=== PATIENT | female | born 1965 | race Caucasian/White ===

== ENCOUNTER 2021-08-14 06:58 | Day surgery (SDC) | payer BC ==
[2021-08-14] MEDS ORDERED: Lactated Ringers 1,000 ML IV SCH (07:00)
[2021-08-14] MEDS ORDERED: Propofol 200 MG/20 ML SDV ONE ×2 (08:23→09:47)
[2021-08-14] MEDS ORDERED: fentaNYL 100 MCG/2 ML SDV ONE (08:23)
--- NOTE | 2021-08-15 14:21 | OR ---
PREOPERATIVE DIAGNOSIS: First screening colonoscopy. POSTOPERATIVE DIAGNOSIS: Colon polyps. PROCEDURE PERFORMED: Total flexible colonoscopy with biopsies. ANESTHESIA: MAC anesthesia. COMPLICATIONS: None apparent. BLOOD LOSS: Minimal. FINDINGS: 1. Hepatic flexure polypoid lesion, 1 to 2 cm, biopsied with cold forceps and tattoo placed. This did appear to be a polyp that was on the backside of a fold and large enough that I did not feel that I could successfully remove this endoscopically. The biopsies were obtained and a tattoo placed in the event this comes back as an adenoma. 2. Sigmoid colon polyps x3, 7 mm and 4 mm, ORISE gel and hot snare, cold snare, cold forceps. 3. Rectosigmoid polyp, 12 mm, hot snare. Tattoo placed here given the size and in the event that comes back as with some malignancy. 4. There were multiple scattered hyperplastic polyps in the rectosigmoid colon. Start time 0918, cecum 0930, stop 0959. BOWEL PREP: [place] class 2. INDICATIONS: Isabel Scott is a 56-year-old female who is here for first screening colonoscopy. She denies any bloody or dark black stools. No family history of colon cancer. She is fairly resistant to cancer screening and has not gotten a mammogram. I did emphasize the importance of both breast cancer and colon cancer screening for her. DETAILS OF PROCEDURE: Informed consent was obtained. The patient was brought to the procedure room, placed in left lateral decubitus position. MAC anesthesia was used by Anesthesia colleagues. The colonoscope was introduced in the rectum and advanced all the way to the cecum. The appendiceal orifice and ileocecal valve were photographed. The terminal ileum was intubated. The colonoscope was then slowly withdrawn. No pathology was identified except for what is mentioned in the above findings section. A retroflexed view was obtained. The colonoscope was removed. The patient was awoken from anesthesia without issue. PATHOLOGY: RECOMMENDATIONS: RKM: 08/14/2021 10:08:18 MODL: 08/14/2021 12:45:40 /[id number]
== END 2021-08-14 11:15 | disposition home or self-care (01) ==
LOC: VM.SDS 06:58
PROVIDERS: ATTEND Student in an Organized Health Care Education/Training Program
DX: Z12.11 Encounter for screening for malignant neoplasm of colon (principal); D12.3 Benign neoplasm of transverse colon; D12.5 Benign neoplasm of sigmoid colon; D12.8 Benign neoplasm of rectum; F17.210 Nicotine dependence, cigarettes, uncomplicated; G43.909 Migraine, unspecified, not intractable, without status migrainosus; F41.9 Anxiety disorder, unspecified; Z90.49 Acquired absence of other specified parts of digestive tract; Z98.890 Other specified postprocedural states; Z79.899 Other long term (current) drug therapy; Z88.8 Allergy status to other drugs, medicaments and biological substances
CPT/HCPCS: 00812; J2704; J3010; J7120

== ENCOUNTER 2024-02-03 08:00 | Emergency (ER) | payer SELFPAY ==
[2024-02-03] MEDS: Sodium Chloride 0.9% 1,000 ML IV ONE (08:25)
[2024-02-03] MEDS: HYDROmorphone 1 MG/ML Syringe IVPUSH ONE (08:27)
[2024-02-03 08:28] LABS: BASOPHILS ABSOLUTE AUTO 0.1 x10^3/uL (0.0-0.2); BASOPHILS PERCENT AUTO 0.7 % (0.2-1.2); EOSINOPHILS ABSOLUTE AUTO 0.5 x10^3/uL (0.0-0.5); EOSINOPHILS PERCENT AUTO 4.2 % (0.0-4.0); HEMATOCRIT 42.7 % (33.0-47.0); HEMOGLOBIN 15.2 g/dL (12.0-16.0); IMMATURE GRAN ABSOLUTE AUTO 0.03 x10^3/uL (0.00-0.07); LYMPHOCYTES ABSOLUTE AUTO 1.6 x10^3/uL (1.0-4.8); LYMPHOCYTES PERCENT AUTO 12.2 % (25.0-50.0); MEAN CORPUSCULAR HEMOGLOBIN 33.9 pg (26.0-32.0); MEAN CORPUSCULAR HGB CONC 35.6 g/dL (32.0-36.0); MEAN CORPUSCULAR VOLUME 95.1 fL (78.0-93.0); MONOCYTES ABSOLUTE AUTO 0.7 x10^3/uL (0.0-0.8); MONOCYTES PERCENT AUTO 5.2 % (2.0-11.0); NEUTROPHILS ABSOLUTE AUTO 9.9 x10^3/uL (1.8-7.7); NEUTROPHILS PERCENT AUTO 77.5 % (50.0-80.0); PLATELET COUNT,PLT 398 x10^3/uL (130-400); RED BLOOD CELL COUNT 4.49 x10^6/uL (4.00-5.50); WHITE BLOOD CELL COUNT,WBC 12.7 x10^3/uL (4.0-10.0)
[2024-02-03 08:29] LABS: APPEARANCE,URINE TURBID (CLEAR)
[2024-02-03] MEDS: Ondansetron 4 MG/2 ML SDV IVPUSH ONE (08:31)
[2024-02-03 08:33] LABS: COLOR,URINE ORANGE (YELLOW)
[2024-02-03 08:41] LABS: A/G RATIO 1.03; ALANINE AMINOTRANSFERASE,ALT 27 U/L (14-59); ALBUMIN 4.1 g/dL (3.4-5.0); ALKALINE PHOSPHATASE 99 U/L (46-116); ANION GAP 17.8 mmol/L (5-15); ASPARTATE AMNIOTRANSFERASE,AST 22 U/L (15-37); BILIRUBIN TOTAL 1.3 mg/dL (0.2-1.0); BLOOD UREA NITROGEN,BUN 15 mg/dL (7-18); C-REACTIVE PROTEIN < 0.50 mg/dL (<=0.50); CALCIUM 9.3 mg/dL (8.5-10.1); CARBON DIOXIDE,CO2 25 mmol/L (21-32); CHLORIDE,CL 106 mmol/L (98-107); ESTIMATED GFR 66 mL/min (>=60); GLUCOSE RANDOM 109 mg/dL (70-99); LIPASE 56 U/L (19-71); POTASSIUM,K 3.8 mmol/L (3.5-5.1); PROTEIN TOTAL,TP 8.1 g/dL (6.4-8.2); SODIUM,NA 145 mmol/L (136-145)
[2024-02-03 08:43] LABS: RBC,URINE POC 20-30 /HPF (NOT SEEN); WBC,URINE POC 0-5 /HPF (NOT SEEN)
[2024-02-03 08:44] LABS: BACTERIA,URINE POC FEW (NOT SEEN); CALCIUM OXALATE CRYSTALS,URINE OCCASIONAL (NOT SEEN); SQUAMOUS EPITHELIAL CELLS,UR P MANY /HPF (NOT SEEN)
[2024-02-03] MEDS: Ketorolac 30 MG/ML SDV IVPUSH ONE (08:45)
[2024-02-03 08:58] LABS: MUCUS,URINE POC MODERATE (NOT SEEN)
[2024-02-03] MEDS: Tamsulosin 0.4 MG Cap.ER PO ONE (09:53)
[2024-02-03] MEDS: Acetaminophen/oxyCODONE 325-5 MG Tab PO ONE (09:53)
== END 2024-02-03 10:15 | disposition home or self-care (01) ==
LOC: VM.ED 08:00
DX: N13.2 Hydronephrosis with renal and ureteral calculous obstruction (principal); Z88.8 Allergy status to other drugs, medicaments and biological substances; Z79.899 Other long term (current) drug therapy
CPT/HCPCS: 74176; 80053; 81003; 81015; 83690; 85025; 86140; 96361; 96374; 96375; 99284; A9270; J1170; J1885; J2405; J7030

== ENCOUNTER 2024-12-18 20:31 | Emergency (ER) | payer BC, OTHER ==
[2024-12-18] MEDS: Ketorolac 30 MG/ML SDV IM ONE (21:12)
[2024-12-18 21:27] LABS: BASOPHILS ABSOLUTE AUTO 0.1 x10^3/uL (0.0-0.2); EOSINOPHILS ABSOLUTE AUTO 0.1 x10^3/uL (0.0-0.5); EOSINOPHILS PERCENT AUTO 2.7 % (0.0-4.0); HEMATOCRIT 36.5 % (33.0-47.0); HEMOGLOBIN 12.5 g/dL (12.0-16.0); IMMATURE GRAN ABSOLUTE AUTO 0.01 x10^3/uL (0.00-0.07); LYMPHOCYTES ABSOLUTE AUTO 0.8 x10^3/uL (1.0-4.8); LYMPHOCYTES PERCENT AUTO 17.2 % (25.0-50.0); MEAN CORPUSCULAR HEMOGLOBIN 32.6 pg (26.0-32.0); MEAN CORPUSCULAR HGB CONC 34.2 g/dL (32.0-36.0); MEAN CORPUSCULAR VOLUME 95.3 fL (78.0-93.0); MONOCYTES ABSOLUTE AUTO 0.7 x10^3/uL (0.0-0.8); MONOCYTES PERCENT AUTO 13.5 % (2.0-11.0); NEUTROPHILS ABSOLUTE AUTO 3.2 x10^3/uL (1.8-7.7); NEUTROPHILS PERCENT AUTO 65.4 % (50.0-80.0); PLATELET COUNT,PLT 219 x10^3/uL (130-400); RED BLOOD CELL COUNT 3.83 x10^6/uL (4.00-5.50); WHITE BLOOD CELL COUNT,WBC 4.8 x10^3/uL (4.0-10.0)
[2024-12-18 21:38] LABS: A/G RATIO 1.09; ALBUMIN 3.5 g/dL (3.4-5.0); BILIRUBIN TOTAL 0.6 mg/dL (0.2-1.0); C-REACTIVE PROTEIN 0.67 mg/dL (<=0.50); CALCIUM 8.7 mg/dL (8.5-10.1); CREATININE 0.8 mg/dL (0.55-1.02); EST CRCL DRUG DOSING (CG) 66.19 mL/min; POTASSIUM,K 3.1 mmol/L (3.5-5.1); PROTEIN TOTAL,TP 6.7 g/dL (6.4-8.2)
[2024-12-18 21:39] LABS: ANION GAP 15.1 mmol/L (5-15)
[2024-12-18] MEDS: Potassium Chloride 10 MEQ Tab.ER PO ONE (21:48)
[2024-12-18] MEDS: predniSONE 20 MG Tab PO ONE (21:49)
== END 2024-12-18 21:55 | disposition home or self-care (01) ==
LOC: VM.ED 20:31
DX: J06.9 Acute upper respiratory infection, unspecified (principal); E87.6 Hypokalemia; Z88.8 Allergy status to other drugs, medicaments and biological substances; Z79.51 Long term (current) use of inhaled steroids
CPT/HCPCS: 36415; 71046; 80053; 85025; 86140; 96372; 99284; A9270-GY; J1885; J7512